=== PATIENT | male | born 1985 ===

== ENCOUNTER 2020-12-02 09:05 | Observation (INO) ==
[2020-12-02] MEDS ORDERED: SODIUM CHLORIDE 0.9% 1,000 ML IV STA (09:36)
[2020-12-02 10:04] LABS: Basophils % 0.3 % (0.0-0.8); Eosinophils % 0.6 % (0.00-10.9); Hematocrit 46.2 VOL% (42.0-52.0); Hemoglobin 15.7 GM/DL (14.0-18.0); Immature Granulocytes % 0.3 %; Immature Granulocytes Absolute 0.02 #; Lymphocytes # 1.6 10*3/uL (1.4-4.0); Mean Corpuscular Volume 87.7 FL (87-102); Mean Platelet Volume 8.9 FL (9.6-12.0); Monocytes % 9.9 % (1.7-12.7); Neutrophils % 65.9 % (38.7-73.9); Platelet Count 285 T/CUMM (130-400); Red Blood Count 5.27 MC/CUMM (3.8-5.5); Red Cell Distribution Width 11.9 % (9.3-17.3); White Blood Count 6.9 T/CUMM (4-12)
[2020-12-02 10:44] LABS: Albumin 4.2 G/DL (3.4-5.0); Bilirubin,Total 1.3 MG/DL (0.2-1.0); Calcium 9.8 MG/DL (8.5-10.1); Potassium 3.7 MMOL/L (3.5-5.1); Total Protein 8.7 G/DL (6.4-8.3)
[2020-12-02 10:45] LABS: Risk Ratio 4.24
[2020-12-02] MEDS ORDERED: BUPIVACAINE MPF 0.25% 30 ML VIAL ONE (11:46)
[2020-12-02] MEDS ORDERED: LIDOCAINE 1%/EPI INJ 20 ML VIAL ONE (11:46)
[2020-12-02] MEDS ORDERED: TISSUE ADHESIVE 1 EACH APPLICATOR TOP ONE ×2 (11:46→13:21)
[2020-12-02] MEDS ORDERED: ROCURONIUM 50 MG/5 ML VIAL IV ONE (11:49)
[2020-12-02] MEDS ORDERED: LIDOCAINE 2% 5 ML VIAL ONE (11:49)
[2020-12-02] MEDS ORDERED: ONDANSETRON 4 MG/2 ML VIAL ONE (11:49)
[2020-12-02] MEDS ORDERED: propofoL 200 MG/20 ML VIAL IV ONE (11:50)
[2020-12-02] MEDS ORDERED: SUCCINYLCHOLINE 200 MG/10 ML VIAL ONE (11:50)
[2020-12-02] MEDS ORDERED: MIDAZOLAM 2 MG/2 ML VIAL ONE (11:54)
[2020-12-02] MEDS ORDERED: fentaNYL 100 MCG/2 ML VIAL ONE (11:54)
[2020-12-02] MEDS ORDERED: KETOROLAC 30 MG/1 ML VIAL ONE (12:32)
[2020-12-02] MEDS ORDERED: ACETAMINOPHEN 1,000 MG/100 ML VIAL IV ONE (12:32)
[2020-12-02] MEDS ORDERED: GLYCOPYRROLATE 0.4 MG/2 ML VIAL ONE (13:01)
[2020-12-02] MEDS ORDERED: NEOSTIGMINE 10 MG/10 ML VIAL ONE (13:01)
[2020-12-02] MEDS ORDERED: MORPHINE 4 MG/1 ML VIAL IV PRN (13:23)
[2020-12-02] MEDS ORDERED: ONDANSETRON 4 MG/2 ML VIAL IV PRN ×2 (13:23→13:49)
[2020-12-02] MEDS ORDERED: HYDROmorphone 2 MG/1 ML VIAL ONE (13:48)
[2020-12-02] MEDS ORDERED: HYDROmorphone 2 MG/1 ML VIAL IV PRN (13:49)
[2020-12-02] MEDS: DEXTROSE 5% LACTATED RINGERS 1,000 ML IV SCH (16:49)
[2020-12-02] MEDS: cefOXitin 2,000 MG in SYRINGE 1 EACH IV SCH ×2 (17:09→23:09)
[2020-12-02] MEDS ORDERED: BENZOCAINE/MENTHOL LOZENGE 18/BOX PO PRN (20:29)
[2020-12-03] MEDS: DEXTROSE 5% LACTATED RINGERS 1,000 ML IV SCH (01:29)
[2020-12-03] MEDS: cefOXitin 2,000 MG in SYRINGE 1 EACH IV SCH (05:12)
[2020-12-03 07:39] VITALS: BP 118/60
== END 2020-12-03 09:38 | disposition home or self-care (01) ==
LOC: N.ED 09:05 → N.EDINP 09:05 → N.3E 12:18
PROVIDERS: ADMIT Surgery; ATTEND Surgery